=== PATIENT | female | born 1965 | race Caucasian/White ===

== ENCOUNTER 2019-03-20 16:35 | Outpatient (CLI) | payer BC ==
--- NOTE | 2019-03-20 16:47 | RAD ---
XR Chest Pa Lat STANDARD History: Latent tuberculosis Comparison: None. Findings: Lungs are clear. No pneumothorax or effusion. Cardiac silhouette and mediastinal contours a re within normal limits. Impression: No acute intrathoracic abnormality.
== END 2019-03-20 16:36 | disposition home or self-care (01) ==
LOC: BICRAD 16:35
PROVIDERS: ATTEND Family Medicine
DX: R76.11 Nonspecific reaction to tuberculin skin test without active tuberculosis (principal)
CPT/HCPCS: 71046